=== PATIENT | male | born 1995 | race Two or more races ===

== ENCOUNTER 2019-12-31 09:43 | Emergency (ER) | payer OTHER ==
[~2019-12-31] VITALS: Ht 182.9 cm; Wt 72.6 kg
[2019-12-31 09:47] VITALS: BP 117/74
--- NOTE | 2019-12-31 09:47 | NUR ---
ED Nurse Note: Pt BIBA [employer] and [employer] for substance abuse. Per EMS, pt took meth last night and when the police arrived at the scene, pt stated that he swallowed a bag of fentanyl, unk amount. Pt is calm and cooperative. AAOx4, verbally responisve. No SOB, on room air. [employer] at bedside. Pt is under custody.
--- NOTE | 2019-12-31 09:54 | Emergency Room Report ---
History of Present Illness General Chief Complaint: Medical Clearance Source: Patient Present Illness HPI 24-year-old male with history of polysubstance abuse brought in by [employer] under custody for medical clearance. Patient initially told PD he took meth and swallowed a bag of fentanyl prior to arrival. No Narcan was given on scene as patient did not demonstrate any opiate toxicity. [employer] officer states that they did find a bag of meth on the patient but no other substances. Patient states his last meth use was last night. When prompted why he swallowed a bag of fentanyl, patient states it was because he was trying to keep it from his girlfriend. He denies SI, HI, auditory or visual hallucinations. His only complaint right now is that he is thirsty. He is having normal bowel movements. Denies IV drug use, fevers, chills, rash, headache, neck pain, photophobia, CP SOB nausea or other symptoms. The patient's symptoms were gradual onset, severity was moderate, duration since 1 day. Quality: Thirsty Patient swallowed the bag of fentanyl 2 hours prior to arrival around 7:30 AM Past medical history: Polysubstance abuse Past surgical history: Denies Smoking: Denies Alcohol use: Denies Drug use: Positive meth, fentanyl use Review of systems: CONST: No fevers or chills, No night sweats PULMONARY: No productive cough, No shortness of breath CARDIAC: No chest pain, No palpitations GI: No vomiting, No diarrhea , No melena_or_BRBPR : No dysuria, No hematuria, No discharge NEURO: No new_focal_weakness_or_numbness, No confusion, No vision changes 14 point Review of Systems is otherwise negative except per HPI Physical Exam: GENERAL: Awake_alert_ nontoxic, no acute distress Spo2 99% on RA -normal EYES: Extraocular muscles are intact. Conjunctivae clear. Lids without swelling Abrasions to the face. No cellulitis. ENT: External nose and ear normal_in_appearance. Oropharynx clear. Head_atraumatic, Moist_oral_mucosa NECK: No JVD. No meningismus. No thyromegaly. Supple. Trachea midline RESP: Normal respiratory effort. Symmetric rise. No stridor. Clear_to_auscultation_No_rales_No_wheezes CARDIAC: Tachycardic. And regular rhytm. No_significant pedal edema. ABDOMEN: Soft. Nondistended. Nontender_No_rebound_or_guarding. MSK: Normal muscle tone, without rigidity. Extremities without asymmetric deformity or swelling. SKIN: Warm and dry. No visible cyanosis or pallor NEUROLOGIC: Alert, oriented x3. Motor_and_sensation_grossly_intact. No truncal ataxia. Gait_normal Psych: Normal mood and affect, normal judgment and insight - COORDINATION OF CARE Case was discussed with: Patient Any labs and imaging that were ordered were interpreted as part of the medical decision making: Medical Decision Making/Plan: Differential diagnosis includes severe depression, bipolar disorder, psychosis, delusions, paranoid schizophrenia, drug abuse, drug intoxication, drug overdose, among others. The patient denies any suicide attempt, overdose, or ingestion. Initial vital signs are notable for tachycardia. Heart rate in the low 110s. Labs were ordered for evaluation, and results are reassuring with no evidence of occult overdose, or severe metabolic derangement. CT shows no FB, perforation, or obstruction. Poison control Simran was consulted. Recommend obtaining labs and getting CT to eval for bag of fentanyl. Recommends if there is bag of drugs to give WBI w NGT golytely 1-2 L/hr until stool completely clear. If he has drowsiness, then administer narcan PRN until asymptomatic. If no FB, can dc after ED observation. When I went to go talk with patient about no FB seen on his CT, he became agitated screaming "Of course I didnt swallow anything. Why would I do that" Patient then attempted to grab at his lines and IV's and hit the [place] police officer. Attempts for non-invasive measures have been considered and/or attempted, however, have been futile. It is in the best interest of the nursing staff, the patient, and others involved in this patient's care that behavioral restraints be applied. Due to danger to staff, patient required chemical sedation with benadryl, haldol, and ativan. He was given IV fluids. The patient was observed for a period of time ~4hrs in the ED with serial neurologic exams. After serial neurologic exams in the emergency department, the patient remains clinically sober. Tachycardia has resolved The patient has no focal neurologic deficits and were able to ambulate with a steady gait without assistance. Patient is ambulatory and back to baseline mental status. Abdominal exam remains soft and non peritoneal and he is able to tolerate PO. I have counseled patient to stop doing drugs as this is detrimental to his health. He agrees. He is medically cleared for booking. Allergies: Coded Allergies: No Known Allergies (Unverified , 12/31/19) COVID-19 Screening Contact w/high risk pt: No Experienced COVID-19 symptoms?: No COVID-19 Testing performed REGIONAL CONTROLLER: No Nursing Documentation-PMH Past Medical History: No History, Except For History Of Psychiatric Problem: Yes - substance abuse Physical Exam Vital Signs Date Time Temp Pulse Resp B/P (MAP) Pulse Ox O2 Delivery O2 Flow Rate FiO2 12/31/19 09:43 97.9 110 16 117/74 (88) 99 Room Air Sp02 EP Interpretation: reviewed, normal Medical Decision Making Diagnostic Impression: Primary Impression: Agitation Additional Impressions: Psychosis Methamphetamine abuse Constipation Dehydration EKG Diagnostic Results Troponin ordered: No Rhythm: NSR ST Segments: no acute changes ASA given to the pt in ED: No PA Scribe Text 12-lead EKG (interpreted by me) Time: 956 Indication: Rhythm analysis Tracing visualized and Interpreted by me. Rhythm: Sinus tachycardia Rate: 109 bpm QTc: 455 Morphology: No_significant_ST_elevations_or_depressions, No STEMI Impression: Sinus tachycardia Rhythm Strip Diag. Results Rhythm Strip Time: 10:26 EP Interpretation: yes Rate: 100 Rhythm: no PVC's, no ectopy CT/MRI/US Diagnostic Results CT/MRI/US Diagnostic Results : Impression CT Abdomen Pelvis WO Contrast Indication: History of foreign body ingestion Findings: Lack of enteric contrast limits assessment of the GI tract. Moderate retained colonic stool is noted. The appendix is normal. No radiopaque ingested foreign body is visualized. No small bowel distention. No free or loculated intraperitoneal gas or fluid is evident. Lack of IV contrast limits assessment of the solid organs. The liver, gallbladder, bile ducts, pancreas, spleen, adrenals, kidneys are unremarkable. No retroperitoneal or mesenteric mass or adenopathy. No pelvic mass or adenopathy. The included lung bases are clear. The bones are unremarkable Impression: Negative The CT scanner at [facility] is accredited by the [employer] and the scans are performed using protocols designed to limit radiation exposure to as low as reasonably achievable to attain images of sufficient resolution adequate for diagnostic evaluation. Dictated By: Amado De La Cruz MD Reevaluation Time: 13:04 Last Vital Signs Date Time Temp Pulse Resp B/P (MAP) Pulse Ox O2 Delivery O2 Flow Rate FiO2 12/31/19 09:43 97.9 110 16 117/74 (88) 99 Room Air Status: improved Disposition: LAW ENFORCEMENT IN CUST Admit Decision Time: 14:00 Condition: Stable Shae Shabazz D.O. Dec 31, 2019 09:54
[2019-12-31] MEDS ORDERED: Naloxone 0.4mg/ml Inj IVP ONE (10:00)
--- NOTE | 2019-12-31 10:05 | NUR ---
ED Nurse Note: Pt was taken to CT via abelardo accompanied by a tech.
--- NOTE | 2019-12-31 10:17 | NUR ---
ED Nurse Note: Pt returned from Ct, not in any distress.
[2019-12-31 10:18] LABS: BASOPHILS % (AUTO) 1.4 % (0.0-2.0); EOSINOPHILS % (AUTO) 0.8 % (0.0-3.0); HEMATOCRIT 41.1 % (42.0-52.0); HEMOGLOBIN 13.4 G/DL (14.2-18.0); LYMPHOCYTES % (AUTO) 9.7 % (20.0-45.0); MEAN CORPUSCULAR VOLUME 79 FL (80-99); MONOCYTES % (AUTO) 6.6 % (1.0-10.0); NEUTROPHILS % (AUTO) 81.4 % (45.0-75.0); PLATELET COUNT 295 K/UL (150-450); RED BLOOD COUNT 5.17 M/UL (4.70-6.10); RED CELL DISTRIBUTION WIDTH 13.3 % (11.6-14.8); WHITE BLOOD COUNT 15.2 K/UL (4.8-10.8)
[2019-12-31] MEDS ORDERED: LORazepam Inj 2mg/ml 1ml ONE (10:23)
[2019-12-31 10:24] VITALS: BP 121/72
--- NOTE | 2019-12-31 10:24 | NUR ---
ED Nurse Note: Pt started being erratic, combative and restless. ERMD ordered non behavioral restraints.
--- NOTE | 2019-12-31 10:25 | NUR ---
ED Nurse Note: Pt pulled out the IV line.
[2019-12-31] MEDS ORDERED: DiphenhydrAMINE 50mg/ml Inj ONE (10:28)
[2019-12-31] MEDS ORDERED: Haloperidol 5mg/ml Inj ONE (10:28)
[2019-12-31] MEDS ORDERED: LORazepam Inj 2mg/ml 1ml IV ONE (10:30)
[2019-12-31] MEDS ORDERED: Haloperidol 5mg/ml Inj IM ONE (10:30)
[2019-12-31] MEDS ORDERED: DiphenhydrAMINE 50mg/ml Inj IM ONE (10:30)
[2019-12-31 10:31] LABS: ANION GAP 4 mmol/L (5-15); BLOOD UREA NITROGEN 14 mg/dL (7-18); CALCIUM 9.3 MG/DL (8.5-10.1); CARBON DIOXIDE 25 MMOL/L (21-32); CHLORIDE 103 MMOL/L (98-107); CREATININE 1.1 MG/DL (0.55-1.30); POTASSIUM 3.2 MMOL/L (3.5-5.1); SODIUM 132 MMOL/L (136-145)
[2019-12-31 10:41] LABS: ALANINE AMINOTRANSFERASE 17 U/L (12-78); ALBUMIN 3.6 G/DL (3.4-5.0); ALKALINE PHOSPHATASE 83 U/L (46-116); ASPARTATE AMINO TRANSFERASE 22 U/L (15-37); BILIRUBIN,TOTAL 0.4 MG/DL (0.2-1.0)
--- NOTE | 2019-12-31 10:46 | Diagnostic Imaging Report ---
Indication: History of foreign body ingestion Technique: Spiral acquisitions obtained through the abdomen and pelvis. No oral contrast utilized, per emergency room physician request No IV contrast utilized, per referring physician request.. Multiplanar reconstructions were generated. Total dose length product 217 mGycm. CTDIvol(s) thousand 4 mGy. Dose reduction achieved using automated exposure control Comparison: None Findings: Lack of enteric contrast limits assessment of the GI tract. Moderate retained colonic stool is noted. The appendix is normal. No radiopaque ingested foreign body is visualized. No small bowel distention. No free or loculated intraperitoneal gas or fluid is evident. Lack of IV contrast limits assessment of the solid organs. The liver, gallbladder, bile ducts, pancreas, spleen, adrenals, kidneys are unremarkable. No retroperitoneal or mesenteric mass or adenopathy. No pelvic mass or adenopathy. The included lung bases are clear. The bones are unremarkable Impression: Negative The CT scanner at [facility] is accredited by the [employer] and the scans are performed using protocols designed to limit radiation exposure to as low as reasonably achievable to attain images of sufficient resolution adequate for diagnostic evaluation.
[2019-12-31 11:24] VITALS: BP 119/69
[2019-12-31 13:49] VITALS: BP 122/81
--- NOTE | 2019-12-31 13:49 | NUR ---
ED Nurse Note: Pt cleared by ERMD for discharge. DC instructions was given and explained to pt and verbalized understanding of teachings. All medical deviecs such as ID band and IV line removed. Pt is AAO x4, ambulatory and left with all personal belongings. Accompanied by [employer].
--- NOTE | 2020-01-01 16:23 | Cardiology Report ---
APPROVED REPORT EKG Measurement Heart [id number] <Conclusion> Sinus tachycardia Otherwise normal ECG
== END 2019-12-31 13:49 | disposition home or self-care (01) ==
LOC: EDBD 09:43 → EMR 10:28
DX: R41.82 Altered mental status, unspecified (principal); F29 Unspecified psychosis not due to a substance or known physiological condition; F15.10 Other stimulant abuse, uncomplicated; E86.0 Dehydration; K59.00 Constipation, unspecified; R00.0 Tachycardia, unspecified
CPT/HCPCS: 36415; 74176; 80053; 84443; 85025; 93005; 96361; 96365; 96366; 96368; 96372; 96375; 99284; G0480; J1200; J1630; J2310; J2405; J3480; J7030